=== PATIENT | female | born 1960 | race African-American/Black ===

== ENCOUNTER 2016-12-30 20:24 | Emergency (ER) | payer OTHER ==
[~2016-12-30] VITALS: Ht 162.6 cm; Wt 76.0 kg
[~2016-12-30 20:24] MED LIST: ALBU6.7H2 IH; BENA20TA3 PO; CALC-889 PO; IBUP-1636 PO; LEVO112T7 PO; METO-298 PO; MINE3.5O28 BOTHEYE; SIMV40TA5 PO
[2016-12-30 20:58] VITALS: BP 152/76
== END 2016-12-30 22:53 | disposition home or self-care (01) ==
LOC: ER 20:24
DX: J32.9 Chronic sinusitis, unspecified (principal); Z79.899 Other long term (current) drug therapy; J45.909 Unspecified asthma, uncomplicated; E11.9 Type 2 diabetes mellitus without complications; I10 Essential (primary) hypertension; B35.4 Tinea corporis
CPT/HCPCS: 99283

== ENCOUNTER 2017-01-15 21:37 | Emergency (ER) | payer OTHER ==
[~2017-01-15] VITALS: Ht 162.6 cm; Wt 65.0 kg
[2017-01-15 21:47] VITALS: BP 102/80
== END 2017-01-16 00:32 | disposition left against medical advice (07) ==
LOC: ER 21:37
DX: Z53.21 Procedure and treatment not carried out due to patient leaving prior to being seen by health care provider (principal)

== ENCOUNTER 2019-04-26 16:56 | Emergency (ER) | payer OTHER ==
[~2019-04-26] VITALS: Ht 162.6 cm; Wt 66.0 kg
[~2019-04-26 16:56] MED LIST changes: -ALBU6.7H2 IH; +ALBU6.7H9 IH; +BENA20TA10 PO; -BENA20TA3 PO; -IBUP-1636 PO; +IBUP-466 PO; -METO-298 PO; +METO-385 PO
[2019-04-26] MEDS ORDERED: ACETAMINOPHEN 500MG TABLET PO ONE (22:00)
[2019-04-26] MEDS ORDERED: IBUPROFEN 800MG TABLET PO ONE (22:00)
[2019-04-26 23:49] VITALS: BP 172/86
== END 2019-04-26 23:50 | disposition home or self-care (01) ==
LOC: ER 20:41
DX: S93.492A Sprain of other ligament of left ankle, initial encounter (principal); X50.1XXA Overexertion from prolonged static or awkward postures, initial encounter; Y93.89 Activity, other specified; Y92.89 Other specified places as the place of occurrence of the external cause; Y99.8 Other external cause status; J45.909 Unspecified asthma, uncomplicated; E11.9 Type 2 diabetes mellitus without complications; E78.00 Pure hypercholesterolemia, unspecified; I10 Essential (primary) hypertension; Z98.890 Other specified postprocedural states; Z79.899 Other long term (current) drug therapy
CPT/HCPCS: 73610; 99283

== ENCOUNTER 2019-04-28 12:02 | Emergency (ER) | payer OTHER ==
[~2019-04-28] VITALS: Ht 162.6 cm; Wt 64.0 kg
[2019-04-28 14:30] VITALS: BP 130/78
== END 2019-04-28 14:50 | disposition home or self-care (01) ==
LOC: ER 12:02
DX: M25.572 Pain in left ankle and joints of left foot (principal); E11.9 Type 2 diabetes mellitus without complications; I10 Essential (primary) hypertension; Z79.899 Other long term (current) drug therapy
CPT/HCPCS: 82962; 99281; 99282

== ENCOUNTER 2019-05-19 19:16 | Emergency (ER) | payer OTHER ==
[~2019-05-19] VITALS: Ht 162.6 cm; Wt 66.0 kg
[2019-05-19 19:51] VITALS: BP 188/82
[2019-05-19 19:59] LABS: BASOPHILS % 0.9 % (0.0-2.0); HEMOGLOBIN. 14.7 g/dL (12.0-16.0); LYMPHOCYTES % 32.7 % (20.0-50.0); MEAN CORPUSCULAR HEMOGLOBIN 28.4 pg (28.0-32.0); MEAN CORPUSCULAR VOLUME 85.3 fL (81.0-99.0); MEAN PLATELET VOLUME 9.8 fl (7.4-10.4); MONOCYTES % 6.5 % (2.0-8.0); NEUTROPHILS % 58.9 % (40.0-76.0); PLATELET 201 x1000/uL (130-400); RED BLOOD CELL COUNT 5.16 mill/uL (4.2-5.4); RED CELL DISTRIBUTION WIDTH 13.4 % (11.6-14.6)
[2019-05-19 20:05] LABS: PROTHROMBIN TIME 10.1 sec (9.6-11.0)
[2019-05-19 20:07] LABS: CHLORIDE 105 mEq/L (98-107)
[2019-05-19 20:11] LABS: ETHANOL BLOOD < 10 mg/dL
[2019-05-19 20:12] LABS: CLARITY URINE CLEAR (CLEAR); COLOR URINE YELLOW (YELLOW); KETONES URINE NEGATIVE (NEGATIVE); LEUKOCYTE ESTERASE URINE NEGATIVE (NEGATIVE); NITRITE URINE NEGATIVE (NEGATIVE); OCCULT BLOOD URINE NEGATIVE (NEGATIVE); PROTEIN URINE NEGATIVE (NEGATIVE); SPECIFIC GRAVITY URINE 1.015 (1.005-1.030); UROBILINOGEN URINE 0.2 E.U./dL (0.2-1.0)
[2019-05-19 20:14] LABS: LDL CHOLESTEROL 138 mg/dL (5-100)
[2019-05-19 20:32] LABS: *AMPHETAMINES SCREEN URINE NEGATIVE (NEGATIVE); *BARBITURATES SCREEN URINE NEGATIVE (NEGATIVE); *BENZODIAZEPINES SCREEN URINE NEGATIVE (NEGATIVE); *COCAINE SCREEN URINE NEGATIVE (NEGATIVE); METHADONE URINE SCREEN NEGATIVE (NEGATIVE); OPIATES URINE SCREEN PRESUMTIVE POSITIVE (NEGATIVE)
[2019-05-19 20:33] LABS: PHENCYCLIDINE URINE SCREEN NEGATIVE (NEGATIVE)
[2019-05-19 20:34] LABS: CANNABINOID URINE SCREEN PRESUMTIVE POSITIVE (NEGATIVE)
[2019-05-19] MEDS ORDERED: IOHEXOL-350 100 ML BOTTLE ONE (21:49)
== END 2019-05-19 22:50 | disposition short-term general hospital (02) ==
LOC: ER 19:16 → CANBEDREQ 23:16
DX: R29.810 Facial weakness (principal); R20.2 Paresthesia of skin; E78.5 Hyperlipidemia, unspecified; I10 Essential (primary) hypertension; R42 Dizziness and giddiness; E11.9 Type 2 diabetes mellitus without complications
CPT/HCPCS: 36415; 70450; 70496; 70498; 71045; 80053; 80305; 80320; 81003; 82962; 83721; 84484; 85025; 85610; 93005; 99285; Q9967; Z7610; G0480

== ENCOUNTER 2022-12-10 23:01 | Emergency (ER) | payer OTHER ==
[~2022-12-10 23:01] MED LIST changes: +ALBU6.7H3 IH; -ALBU6.7H9 IH; +BENA-8 PO; -BENA20TA10 PO; +SIMV-46 PO; -SIMV40TA5 PO
== END 2022-12-11 01:42 | disposition left against medical advice (07) ==
LOC: ER 12-11 00:06
DX: Z53.21 Procedure and treatment not carried out due to patient leaving prior to being seen by health care provider (principal)
CPT/HCPCS: 99281

== ENCOUNTER 2025-06-12 14:24 | Emergency (ER) | payer OTHER ==
[~2025-06-12] VITALS: Ht 162.6 cm; Wt 51.0 kg
[2025-06-12 14:40] VITALS: O2SAT 98
[2025-06-12] MEDS: KETOROLAC 30MG/ML VIAL IM ONE (15:13)
[2025-06-12] MEDS ORDERED: NAPR-1176 MT (15:16)
[2025-06-12] MEDS ORDERED: LIDO-53 TP (15:16)
[2025-06-12] MEDS: LIDOCAINE 5% PATCH TOP SCH (15:27)
[2025-06-12 15:28] VITALS: BP 147/78; PULSE 77; RESP 18; TEMP 37.1; O2SAT 98
== END 2025-06-12 15:28 | disposition home or self-care (01) ==
LOC: ER 14:24
DX: M54.6 Pain in thoracic spine (principal); E11.9 Type 2 diabetes mellitus without complications; I10 Essential (primary) hypertension; Z79.899 Other long term (current) drug therapy; Z79.890 Hormone replacement therapy; Z79.1 Long term (current) use of non-steroidal anti-inflammatories (NSAID); Z98.890 Other specified postprocedural states
CPT/HCPCS: 99283; 96372; J1885